=== PATIENT | female | born 1985 | race Caucasian/White ===

== ENCOUNTER 2016-12-08 08:32 | Inpatient (IN) | payer OTHER ==
[2016-12-08] MEDS: DEXTROSE 5%-LACTATED RINGERS 1,000 ML IV SCH ×2 (09:30→15:00)
[2016-12-08] MEDS ORDERED: TUBERCULIN PPD 5 TU/0.1ML SYRINGE (IN PATIENT USE ONLY) ID ONE (09:38)
[2016-12-08] MEDS: OXYTOCIN 15 UNITS/ LR 250 ML 250 ML IVPB SCH (10:30)
--- NOTE | 2016-12-08 10:35 | HP ---
Past Medical History - Primary Care Physician PCP:: Juan Manuel Ordonez - Admission Chief Complaint: 39 ,ROM, fibroid uterus History of Present Illness: 31 yo f edc by sono 12/13/16 , 39.2 weeks, c/o rom since 730 am today . mild cramps 8 am, no bleeding, no fever, cx 2 cm 80 vx -2 mr, nitrazine positive, gross ROM, clear fluid, fhr cat 1 , irregular mild contraction History Source: Patient Limitations to Obtaining History: No Limitations - Past Medical History ...: 2 ...Para: 0 ...Spon : 1 ...EDC by Sono: 12/13/16 Additional OB History: hx of fibroid uterus - Past Surgical History Hx Myomectomy: No Hx Transabdominal Cerclage: No - Alcohol/Substance Use Hx Alcohol Use: No History of Substance Use: reports: None - Social History Usual Living Arrangement: Yes: With Spouse History of Recent Travel: No Home Medications - Allergies Allergies/Adverse Reactions: Allergies Allergy/AdvReac Type Severity Reaction Status Date / Time Penicillins Allergy Severe Swelling Verified 12/08/16 09:51 - Home Medications Home Medications: Ambulatory Orders Vit Calc,Iron,Folic [ Vitamins] 1 each PO DAILY 12/08/16 Review of Systems - Review of Systems Constitutional: reports: No Symptoms Eyes: reports: No Symptoms HENT: reports: No Symptoms Neck: reports: No Symptoms Cardiovascular: reports: No Symptoms Respiratory: reports: No Symptoms Gastrointestinal: reports: No Symptoms Genitourinary: reports: No Symptoms Breasts: reports: No Symptoms Reported Musculoskeletal: reports: No Symptoms Integumentary: reports: No Symptoms Neurological: reports: No Symptoms Endocrine: reports: No Symptoms Hematology/Lymphatic: reports: No Symptoms Psychiatric: reports: No Symptoms Physical Exam - Maternity Vital Signs: Vital Signs Temperature 98.4 F 12/08/16 10:00 Pulse Rate 74 12/08/16 10:00 Respiratory Rate 18 12/08/16 10:00 Blood Pressure 124/62 12/08/16 10:00 O2 Sat by Pulse Oximetry (%) Constitutional: Yes: Well Nourished, No Distress, Calm Eyes: Yes: WNL, Conjunctiva Clear, EOM Intact HENT: Yes: WNL, Atraumatic, Normocephalic Neck: Yes: WNL, Supple, Trachea Midline Cardiovascular: Yes: WNL, Regular Rate and Rhythm Breast(s): Yes: WNL - Abdominal Exam/OB Number of Fetuses: Single Presentation: Vertex Contractions: Yes Regularity: Irregular Intensity: Mild/Mod Monitor Mode: External Heart Rate Location: [facility] Category: I Accelerations: Uniform Decelerations: None - Vaginal Exam/OB Vaginal Bleediing: No Speculum Exam: Yes Dilatation (cm): 2 cm Effacement (%): 80 Amniotic Membrane Status: Ruptured Nitrazine Test: Positive Amniotic Fluid: Yes: Clear Presentation: Vertex/Position Station: -2 - Physical Exam Musculoskeletal: Yes: WNL Extremities: Yes: WNL Edema: Yes Edema: LLE: 1+, RLE: 1+ Deep Tendon Reflex Grade: Normal +2 ...Motor Strength: WNL Psychiatric: Yes: WNL Hemorrhage Risk Assessment - Risk Factors Medium Risk Factors: Yes: Large myomas Risk Score: 1 Risk Level: Medium Risk Problem List - Problems (1) with 39 completed weeks gestation Code(s): Z3A.39 - 39 WEEKS GESTATION OF (2) membrane rupture Code(s): [id number] - (3) Fibroid uterus Code(s): D25.9 - LEIOMYOMA OF UTERUS, UNSPECIFIED Qualifiers: Uterine leiomyoma location: intramural Qualified Code(s): D25.1 - Intramural leiomyoma of uterus; D25.1 - Intramural leiomyoma of uterus Assessment/Plan admit, fhm, pitocin rba discussed , agreed
[2016-12-08] MEDS ORDERED: BUTORPHANOL TARTRATE 1 MG/ML VIAL IVPUSH ONE (10:43)
[2016-12-08] MEDS ORDERED: PROMETHAZINE HCL 25 MG/1 ML VIAL IVPUSH ONE (10:43)
[2016-12-08 10:47] LABS: BASOPHIL 0.2 % (0-2.0); EOSINOPHIL 0.5 % (0-4.5); MCH 30.7 pg (25.7-33.7); MCHC 33.3 g/dl (32.0-36.0); MEAN CELL VOLUME 92.4 fl (80-96); MEAN PLT VOLUME 8.3 fl (7.5-11.1); NEUTROPHILS 77.7 % (42.8-82.8); PLATELET COUNT 189 K/MM3 (134-434); RDW 14.1 % (11.6-15.6); WHITE BLOOD COUNT 7.5 K/mm3 (4.0-10.0)
[2016-12-08 11:09] LABS: INR 0.97 (0.82-1.09); PROTHROMBIN TIME (PATIENT) 10.7 SEC (9.98-11.88)
[2016-12-08 11:11] LABS: ACTIVATED PTT 25.8 SECONDS (26.9-34.4)
[2016-12-08 11:12] LABS: ANION GAP 13 (8-16); CALCIUM 8.8 mg/dL (8.5-10.1); CO2 19 mmol/L (21-32); CREATININE 0.6 mg/dL (0.55-1.02); GLUCOSE,RANDOM 128 mg/dL (74-106)
[2016-12-08 11:20] VITALS: BMI 35.9
[2016-12-08 11:32] LABS: HIV 1 & 2 AB NEGATIVE; HIV 1 AGp24 NEGATIVE
--- NOTE | 2016-12-08 19:00 | PN ---
Progress Note (short form) - Note Progress Note: cx 6 cm 100 vx -1 mr fhr cat 1. contraction regular Problem List - Problems (1) with 39 completed weeks gestation Code(s): Z3A.39 - 39 WEEKS GESTATION OF (2) membrane rupture Code(s): [id number] - (3) Fibroid uterus Code(s): D25.9 - LEIOMYOMA OF UTERUS, UNSPECIFIED Qualifiers: Uterine leiomyoma location: intramural Qualified Code(s): D25.1 - Intramural leiomyoma of uterus; D25.1 - Intramural leiomyoma of uterus
[2016-12-08] MEDS ORDERED: PROMETHAZINE HCL 25 MG/1 ML VIAL IVPB ONE (19:30)
[2016-12-08] MEDS ORDERED: BUTORPHANOL TARTRATE 1 MG/ML VIAL IVPB ONE (19:30)
[2016-12-08] MEDS ORDERED: CLINDAMYCIN 900 MG PREMIX IVPB 50 ML IVPB ONE (22:45)
[2016-12-08] MEDS ORDERED: ELECTROLYTE-148 SOLN 1,000 ML IV SCH (23:15)
[2016-12-09] MEDS ORDERED: FENTANYL/BUPIVACAINE/NS/PF - PCEA - 50 ML DISP.SYRIN EP SCH (00:45)
[2016-12-09] MEDS: CLINDAMYCIN 600MG PREMIX IVPB 50 ML IVPB SCH ×4 (02:50→22:20)
[2016-12-09] MEDS: OXYTOCIN 15 UNITS/ LR 250 ML 250 ML IVPB SCH (09:00)
--- NOTE | 2016-12-09 09:17 | PN ---
Progress Note (short form) - Note Progress Note: cx ant ,lip .100, vx 0 , fhr cat 1 .. contraction q 2 to 3 min Problem List - Problems (1) with 39 completed weeks gestation Code(s): Z3A.39 - 39 WEEKS GESTATION OF (2) membrane rupture Code(s): [id number] - (3) Fibroid uterus Code(s): D25.9 - LEIOMYOMA OF UTERUS, UNSPECIFIED Qualifiers: Uterine leiomyoma location: intramural Qualified Code(s): D25.1 - Intramural leiomyoma of uterus; D25.1 - Intramural leiomyoma of uterus
[2016-12-09] MEDS ORDERED: METHYLERGONOVINE MALEATE 0.2 MG/1 ML AMP IM PRN (14:44)
[2016-12-09] MEDS ORDERED: oxyCODONE HCL 5 MG TABLET PO PRN (14:44)
[2016-12-09] MEDS ORDERED: WITCH HAZEL 50% (TUCKS) 40 PAD/JAR PAD TP PRN (14:44)
[2016-12-09] MEDS ORDERED: BENZOCAINE 28 GM HEMORRHOIDAL OINTMENT PR PRN (14:44)
[2016-12-09] MEDS ORDERED: diphenhydrAMINE HCL 25 MG CAPSULE (FP) PO PRN (14:44)
[2016-12-09] MEDS ORDERED: BENZOCAINE 20% 57 GM BOTTLE TP PRN (14:44)
--- NOTE | 2016-12-09 14:44 | PN ---
Progress Note (short form) - Note Progress Note: cx fully for 3 hours o station, no descent, hx of fibroids, r/o obstruction advised c/s, rba discussed Problem List - Problems (1) with 39 completed weeks gestation Code(s): Z3A.39 - 39 WEEKS GESTATION OF (2) membrane rupture Code(s): [id number] - (3) Fibroid uterus Code(s): D25.9 - LEIOMYOMA OF UTERUS, UNSPECIFIED Qualifiers: Uterine leiomyoma location: intramural Qualified Code(s): D25.1 - Intramural leiomyoma of uterus; D25.1 - Intramural leiomyoma of uterus
[2016-12-09] MEDS ORDERED: DEXTROSE 5%-LACTATED RINGERS 1,000 ML IV SCH (14:45)
[2016-12-09] MEDS ORDERED: OXYTOCIN 20 UNITS in 0.9% NS 1,000 ML IV SCH (14:45)
[2016-12-09] MEDS ORDERED: ONDANSETRON 4 MG/2 ML VIAL IVPB PRN (15:36)
[2016-12-09] MEDS ORDERED: ACETAMINOPHEN 1000 MG/100 ML VIAL (NON FORMULARY) IVPB ONE (17:15)
[2016-12-09] MEDS ORDERED: CLINDAMYCIN 600MG PREMIX IVPB 50 ML IVPB SCH (18:00)
[2016-12-09] MEDS: IBUPROFEN 800 MG/8 ML IJ IVPB PRN (21:01)
[2016-12-10] MEDS: CLINDAMYCIN 600MG PREMIX IVPB 50 ML IVPB SCH (05:55)
[2016-12-10] MEDS: IBUPROFEN 800 MG/8 ML IJ IVPB PRN (05:56)
[2016-12-10 08:31] LABS: BASOPHIL 0.3 % (0-2.0); EOSINOPHIL 0.5 % (0-4.5); MCH 30.7 pg (25.7-33.7); MCHC 33.2 g/dl (32.0-36.0); MEAN CELL VOLUME 92.6 fl (80-96); MEAN PLT VOLUME 7.7 fl (7.5-11.1); NEUTROPHILS 78.8 % (42.8-82.8); PLATELET COUNT 178 K/MM3 (134-434); WHITE BLOOD COUNT 11.5 K/mm3 (4.0-10.0)
[2016-12-10] MEDS: ENOXAPARIN NA (PORCINE) 40 MG/0.4 ML DISP.SYRIN SQ SCH (09:46)
[2016-12-10] MEDS ORDERED: FLU VACC QS2017-18 36MOS UP/PF 60 MCG/0.5 ML SYRINGE IM ONE (10:00)
[2016-12-10] MEDS ORDERED: DIPHTH,PERTUSS(ACELL),TET 0.5 ML DISP.SYRIN IM ONE (10:00)
--- NOTE | 2016-12-10 13:58 | PN ---
Progress Note, Physician Chief Complaint: s/p c section under spinal anesthesia History of Present Illness: post op day one with duramorph for post op pain control - Current Medication List Current Medications: Active Medications Benzocaine (Americaine Ointment -) 1 applic MA PRN PRN PRN Reason: PAIN Benzocaine (Americaine 20% [place] -) 1 spray TP PRN PRN PRN Reason: PAIN Bisacodyl (Dulcolax Suppository -) 10 mg MA PRN PRN PRN Reason: CONSTIPATION Diphenhydramine HCl (Benadryl -) 25 mg PO Q8H PRN PRN Reason: FOR ITCHING Diphenhydramine HCl (Benadryl Injection -) 25 mg IVPUSH Q4H PRN PRN Reason: Pruritis Enoxaparin Sodium (Lovenox -) 40 mg SQ DAILY [facility] Last Admin: 12/10/16 09:46 Dose: 40 mg Dextrose/Lactated Ringer's (D5-Lr -) 1,000 mls @ 100 mls/hr IV ASDIR [facility] Last Admin: 12/08/16 15:00 Dose: 100 mls/hr Parenteral Electrolytes (Plasma-Lyte 148 -) 1,000 mls @ 125 mls/hr IV ASDIR [facility] Last Admin: 12/08/16 23:00 Dose: 125 mls/hr Dextrose/Lactated Ringer's (D5-Lr -) 1,000 mls @ 125 [facility]ls[facility] Ibuprofen (Motrin -) 600 mg PO Q4H PRN PRN Reason: PAIN Methylergonovine Maleate (Methergine Injection -) 0.2 mg IM Q4H PRN PRN Reason: EXCESSIVE BLEEDING Oxycodone HCl (Roxicodone -) 5 mg PO Q4H PRN PRN Reason: PAIN LEVEL 1-5 Oxycodone HCl (Roxicodone -) 10 mg PO Q4H PRN PRN Reason: PAIN LEVEL 6-10 Senna/Docusate Sodium (Pericolace -) 2 tablet PO HS PRN PRN Reason: CONSTIPATION Simethicone (Mylicon -) 80 mg PO Q4H PRN PRN Reason: GAS Witch Denita/Glycerin (Tucks Pads -) 1 pad TP PRN PRN PRN Reason: PAIN - Objective Vital Signs: Vital Signs Temperature 98.7 F 12/10/16 10:00 Pulse Rate 78 12/10/16 10:00 Respiratory Rate 18 12/10/16 12:00 Blood Pressure 102/63 12/10/16 10:00 O2 Sat by Pulse Oximetry (%) 100 12/09/16 10:05 Constitutional: Yes: Well Nourished Cardiovascular: Yes: WNL Respiratory: Yes: WNL Gastrointestinal: Yes: WNL Neurological: Yes: WNL Labs: CBC, BMP 12/10/16 07:35 12/08/16 09:50 INR, PTT INR 0.97 (0.82-1.09) 12/08/16 09:50 Assessment/Plan no anesthetic complaints, pain controlled, tolerating po, dept of anesthesiology will sign off care
[2016-12-10] MEDS ORDERED: BISACODYL 10 MG SUPP.RECT PR PRN (14:44)
[2016-12-10] MEDS: SIMETHICONE 80 MG TAB.CHEW (FP) PO PRN ×2 (15:37→21:55)
--- NOTE | 2016-12-10 18:20 | PN ---
Progress Note (short form) - Note Progress Note: pod 1 doing well, no c/o voids ok CBC, BMP 12/10/16 07:35 12/08/16 09:50 Last Vital Signs Temp Pulse Resp BP Pulse Ox 98.2 F 84 18 116/72 100 12/10/16 14:00 12/10/16 14:00 12/10/16 16:00 12/10/16 14:00 12/09/16 10:05 abdomen soft, no distension, no cva incision dry, clean no calf tenderness plan ambulate, advance diet, pain management Problem List - Problems (1) with 39 completed weeks gestation Code(s): Z3A.39 - 39 WEEKS GESTATION OF (2) membrane rupture Code(s): [id number] - (3) Fibroid uterus Code(s): D25.9 - LEIOMYOMA OF UTERUS, UNSPECIFIED Qualifiers: Uterine leiomyoma location: intramural Qualified Code(s): D25.1 - Intramural leiomyoma of uterus; D25.1 - Intramural leiomyoma of uterus
[2016-12-10] MEDS: oxyCODONE HCL 5 MG TABLET PO PRN (21:56)
[2016-12-10] MEDS: IBUPROFEN 600 MG TABLET (FP) PO PRN (21:56)
[2016-12-10] MEDS: ACETAMINOPHEN 325 MG TABLET (FP) PO PRN (21:57)
--- NOTE | 2016-12-11 06:20 | OP ---
DATE OF OPERATION: 12/09/2016 PREOPERATIVE DIAGNOSES: , term; prolonged ruptured membrane; failure to dilate. POSTOPERATIVE DIAGNOSES: , term; prolonged ruptured membrane; failure to dilate. PROCEDURE: Primary low segment transverse section. SURGEON: Juan Manuel Ordonez MD KNITTING MACHINE OPERATOR HELPER: Lilo Lane MD ESTIMATED BLOOD LOSS: 500 mL. FINDINGS: A live baby boy, 9, 9. OPERATION: Patient was taken to the operating room. Under adequate spinal anesthesia, abdomen and perineum were prepped and draped. Pfannenstiel abdominal skin incision was made. Abdominal wall was cut layer by layer until peritoneum was exposed and incised. Upon entering the abdominal cavity, lower uterine segment was identified and uterovesical fold of peritoneum established. Bladder was pushed down. A low transverse uterine incision was made. The incision extended laterally. Amniotic sac was entered. Clear fluid. Head delivered. Nasopharynx was suctioned and live baby was delivered without any difficulty. Placenta was delivered manually. Uterine cavity was cleaned of all remaining tissue. Uterine incision was closed in 2 layers, 1st layer with 0 Biosyn continuous suture, the 2nd layer with 0 Biosyn imbricating the 1st layer. Bladder flap was closed with 0 Biosyn continuous suture. Both tubes and ovaries were checked, were normal. There were several fibroids seen. Then, peritoneum was closed with 0 Biosyn continuous suture. Muscle layer brought together and sutured with 0 Biosyn. Fascia was closed with 0 Biosyn continuous suture, subcutaneous fat interrupted suture of 0 Biosyn, and the skin was closed with taylor. Patient tolerated procedure well, left the OR in good condition. Yolanda [id number]
--- NOTE | 2016-12-11 08:05 | PN ---
Progress Note (short form) - Note Progress Note: pod 2 doing well, ambulating , passing gas CBC, BMP 12/10/16 07:35 12/08/16 09:50 Last Vital Signs Temp Pulse Resp BP Pulse Ox 98.2 F 96 H 18 124/76 100 12/10/16 22:00 12/10/16 22:00 12/10/16 22:00 12/10/16 22:00 12/09/16 10:05 abdomen soft, no distension , no cva incision clean , dry no excess vaginal bleeding no calf tenderness plan ambulate, cbc in am, iron and vit Problem List - Problems (1) with 39 completed weeks gestation Code(s): Z3A.39 - 39 WEEKS GESTATION OF (2) membrane rupture Code(s): [id number] - (3) Fibroid uterus Code(s): D25.9 - LEIOMYOMA OF UTERUS, UNSPECIFIED Qualifiers: Uterine leiomyoma location: intramural Qualified Code(s): D25.1 - Intramural leiomyoma of uterus; D25.1 - Intramural leiomyoma of uterus
[2016-12-11] MEDS: ENOXAPARIN NA (PORCINE) 40 MG/0.4 ML DISP.SYRIN SQ SCH (10:24)
[2016-12-11] MEDS: IBUPROFEN 600 MG TABLET (FP) PO PRN (13:56)
[2016-12-11] MEDS: SIMETHICONE 80 MG TAB.CHEW (FP) PO PRN (13:56)
[2016-12-11] MEDS: oxyCODONE HCL 5 MG TABLET PO PRN (13:57)
[2016-12-11] MEDS: SENNOSIDES/DOCUSATE COMBO (SENNA PLUS) TABLET (UD) PO PRN (21:25)
--- NOTE | 2016-12-12 06:19 | PN ---
Post Progress Note Post Day: 3 Type of Delivery: Primary C/S Vital Signs: Vital Signs Temperature 97.6 F 12/11/16 21:29 Pulse Rate 88 12/11/16 21:29 Respiratory Rate 20 12/11/16 21:29 Blood Pressure 128/80 12/11/16 21:29 O2 Sat by Pulse Oximetry (%) 100 12/09/16 10:05 Breast Exam: Yes: Soft Uterus: Yes: Fundus Firm Incision: Yes: Jessica intact Abdomen/GI: Yes: Abdomen soft Lochia: Yes: Rubra Lochia, amount: Small Extremities: Yes: Calves non-tender Perineum: Yes: Intact Activity: Ambulating - Labs Labs: CBC WBC 11.5 K/mm3 (4.0-10.0) H D 12/10/16 07:35 RBC 2.95 M/mm3 (3.60-5.2) L D 12/10/16 07:35 Hgb 9.1 GM/dL (10.7-15.3) L D 12/10/16 07:35 Hct 27.3 % (32.4-45.2) L D 12/10/16 07:35 MCV 92.6 fl (80-96) 12/10/16 07:35 MCH 30.7 pg (25.7-33.7) 12/10/16 07:35 MCHC 33.2 g/dl (32.0-36.0) 12/10/16 07:35 RDW 14.0 % (11.6-15.6) 12/10/16 07:35 Plt Count 178 K/MM3 (134-434) 12/10/16 07:35 MPV 7.7 fl (7.5-11.1) 12/10/16 07:35 Neutrophils % 78.8 % (42.8-82.8) 12/10/16 07:35 Lymphocytes % 16.0 % (8-40) 12/10/16 07:35 Monocytes % 4.4 % (3.8-10.2) 12/10/16 07:35 Eosinophils % 0.5 % (0-4.5) 12/10/16 07:35 Basophils % 0.3 % (0-2.0) 12/10/16 07:35 Assessment/Plan stable no dizziness oob reg diet dc in am
[2016-12-12 07:29] LABS: BASOPHIL 0.3 % (0-2.0); EOSINOPHIL 0.7 % (0-4.5); MCH 30.6 pg (25.7-33.7); MCHC 33.2 g/dl (32.0-36.0); MEAN CELL VOLUME 92.1 fl (80-96); MEAN PLT VOLUME 7.9 fl (7.5-11.1); NEUTROPHILS 74.7 % (42.8-82.8); PLATELET COUNT 214 K/MM3 (134-434); RDW 14.1 % (11.6-15.6)
[2016-12-12] MEDS: IBUPROFEN 600 MG TABLET (FP) PO PRN ×2 (09:56→21:34)
[2016-12-12] MEDS: ENOXAPARIN NA (PORCINE) 40 MG/0.4 ML DISP.SYRIN SQ SCH (09:56)
[2016-12-12] MEDS: SIMETHICONE 80 MG TAB.CHEW (FP) PO PRN ×2 (09:56→21:33)
[2016-12-12] MEDS: ACETAMINOPHEN 325 MG TABLET (FP) PO PRN ×2 (09:57→21:33)
[2016-12-12] MEDS: SENNOSIDES/DOCUSATE COMBO (SENNA PLUS) TABLET (UD) PO PRN (21:33)
[2016-12-13] MEDS: IBUPROFEN 600 MG TABLET (FP) PO PRN (09:41)
[2016-12-13] MEDS: SIMETHICONE 80 MG TAB.CHEW (FP) PO PRN (09:42)
[2016-12-13] MEDS: ACETAMINOPHEN 325 MG TABLET (FP) PO PRN (09:42)
[2016-12-13] MEDS: ENOXAPARIN NA (PORCINE) 40 MG/0.4 ML DISP.SYRIN SQ SCH (09:43)
[2016-12-13 10:41] VITALS: BP 124/80; PULSE 88; TEMP 98.7
--- NOTE | 2016-12-15 08:46 | DS ---
Physical Exam-DRILL PRESSER Vital Signs: Vital Signs Temperature 98.7 F 12/13/16 10:00 Pulse Rate 88 12/13/16 10:00 Respiratory Rate 20 12/13/16 10:00 Blood Pressure 124/80 12/13/16 10:00 O2 Sat by Pulse Oximetry (%) 100 12/09/16 10:05 Constitutional: Yes: Well Nourished, No Distress, Calm Eyes: Yes: WNL, Conjunctiva Clear, EOM Intact HENT: Yes: WNL, Atraumatic, Normocephalic Neck: Yes: WNL, Supple, Trachea Midline Cardiovascular: Yes: WNL, Regular Rate and Rhythm Respiratory: Yes: WNL, Regular, CTA Bilaterally Gastrointestinal: Yes: WNL ...Rectal Exam: Yes: WNL Renal/: Yes: WNL ....Post : Yes: Uterus firm, Uterus non-tender, Slight lochia rubra Breast(s): Yes: WNL Musculoskeletal: Yes: WNL Extremities: Yes: WNL Integumentary: Yes: WNL Wound/Incision: Yes: Clean/Dry, Well Approximated, [place] Intact Neurological: Yes: WNL, Alert, Oriented ...Motor Strength: WNL Psychiatric: Yes: WNL, Alert, Oriented Labs: CBC, BMP 12/12/16 06:00 12/08/16 09:50 Delivery - Delivery Section: Repeat (no complication), Low Flap Transverse Type of Anesthesia: Spinal Episiotomy/Laceration: None EBL (cc): 600 Delivery, Single - Stages of Labor Date 1st Stage Initiatied: 12/08/16 Time 1st Stage Initiated: 22:00 Date 2nd Stage Initiated: 12/09/16 Time 2nd Stage Initiated: 10:10 Date of Delivery: 12/09/16 Time of Delivery: 14:59 Time Placenta Delivered: 15:01 Placenta: Yes: Expressed - Condition of Infant 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 - 1 Minute Total Score: 9 5 Minutes Total Score: 9 - Feeding Plan Initial Plan: Elected not to breastfeed exclusively throughout hospitalization Discharge Summary Reason For Visit: LABOR Procedures: Principal: repeat LST c/s Condition: Good - Instructions Referrals: Juan Manuel Ordonez MD [Staff Physician] - Disposition: HOME - Home Medications Comprehensive Discharge Medication List: Ambulatory Orders Ibuprofen [Motrin -] 600 mg PO TID #21 tablet 12/12/16
--- NOTE | 2016-12-16 17:02 | PATH ---
Surgical Pathology Report Patient Name: SAILAJA NATARAJAN Med. Rec. #: [id number] /Age/Gender: 1985 (Age: 31) / F Account: [id number] Location: [facility] OBS/GLUE WHEEL OPERATOR Taken: 12/08/2016 Received: 12/10/2016 Reported: 12/16/2016 Physicians: Juan Manuel Ordonez M.D. Specimen(s) Received PLACENTA Clinical History , 39.3 gestational weeks, PROM Failure to descend Final Diagnosis PLACENTA, SECTION: THIRD TRIMESTER PLACENTA (420 g) WITH ACUTE CHORIOAMNIONITIS AND FOCAL ACUTE UMBILICAL PHLEBITIS. TRIVASCULAR UMBILICAL CORD PRESENT. Electronically Signed Nilda Lopez M.D. Gross Description The specimen is received fresh labeled placenta and is a 420 gram, 13.0 x 12.5 x 3.2 cm. placenta with attached membranes and umbilical cord. The attached membranes are rodriguez, translucent with focal opacities and insert marginally. The umbilical cord measures 20 cm. in length and averages 1.2 cm. in diameter. The cord inserts at the margin. No true knots or strictures are identified. Cut surface of the umbilical cord reveals 3 vessels. The surface is hendrix-blue with minimal fibrin deposition and appropriate caliber vessels. The maternal surface is red-brown and intact. Sectioning reveals red-brown, spongy parenchyma. No lesions are identified. Leverman sections are submitted in three cassettes as follows: 1- membrane rolls and umbilical cord; 2-3- full thickness sections of placenta. 12/11/2016 [facility]12/11/2016
== END 2016-12-13 15:30 | disposition home or self-care (01) | DRG 540 ==
LOC: JDEL 08:32 → JLDR 09:00 → UNDOADMIN 09:00 → J3W 12-09 17:01
PROVIDERS: ADMIT Obstetrics & Gynecology; ATTEND Obstetrics & Gynecology
PROC: 10D00Z1 Extraction of Products of Conception, Low, Open Approach (ICD-10-PCS; principal; 2016-12-09)
DX: O62.0 Primary inadequate contractions (principal); O42.92 Full-term premature rupture of membranes, unspecified as to length of time between rupture and onset of labor; O34.13 Maternal care for benign tumor of corpus uteri, third trimester; D25.1 Intramural leiomyoma of uterus; Z3A.39 39 weeks gestation of pregnancy; O62.1 Secondary uterine inertia; Z37.0 Single live birth
CPT/HCPCS: 36415; 59025; 71020-TC; 80048; 80053; 81003; 81015; 85025; 85610; 85730; 86593; 86850; 86900; 86901; 87389; 88307-TC; 90686; 90715; 99282-25; G0008

== ENCOUNTER 2016-12-13 21:17 | Emergency (ER) | payer OTHER ==
[2016-12-13 21:41] VITALS: BP 130/72; PULSE 119; TEMP 99; BMI 34.5
--- NOTE | 2016-12-13 22:11 | PDOC ---
History of Present Illness - General Chief Complaint: Pain Stated Complaint: POST /ABD PAIN Time Seen by Provider: 12/13/16 22:09 History Source: Patient Exam Limitations: No Limitations - History of Present Illness Initial Comments: Patient is a 31 year old who was discharged today 5 days s/p presenting with fever and and sharp left lower abdominal pain. Patient gave by to a 39 week old boy five days ago and was discharged at 15: 00 today. About an hour after returning home patient started feeling sharp left lower abdominal pains and chills and recorded an oral temperature of 103. Pain was only minimally relieved with ibuprophin 600. Denies headache, dizziness , confusion, shortness of breath , chest pain, nausea, vomiting, constipation, diarrhea and dysurea. No PMH, no meds. PCP: none Penicillin allergy 12/13/16 22:11 Past History - Past Medical History Allergies/Adverse Reactions: Allergies Allergy/AdvReac Type Severity Reaction Status Date / Time Penicillins Allergy Severe Swelling Verified 12/13/16 21:41 Home Medications: Ambulatory Orders Ibuprofen [Motrin -] 600 mg PO TID #21 tablet 12/12/16 Asthma: No Cancer: No Cardiac Disorders: No Diabetes: No HTN: No Seizures: No Thyroid Disease: No - Suicide/Smoking/Psychosocial Hx Smoking History: Never smoked Have you smoked in the past 12 months: No Information on smoking cessation initiated: No Hx Alcohol Use: No Drug/Substance Use Hx: No Hx Substance Use Treatment: No *Physical Exam - Vital Signs Last Vital Signs Temp Pulse Resp BP Pulse Ox 99.0 F 119 H 18 130/72 99 12/13/16 21:36 12/13/16 21:36 12/13/16 21:36 12/13/16 21:36 12/13/16 21:36 ED Treatment Course - LABORATORY CBC & Chemistry Diagram: 12/13/16 22:40 12/13/16 22:40 Medical Decision Making - Medical Decision Making Recently discharged 31 year old 5 days s/p presenting with abdominal pain and fever. Temperature of 99 and tachycardia (119) at presentation. Clean/ dry incision sity w/o signs of infection or discharge. left sided tenderness just superior to incision site. ddx includes but is not limited to surgical incision infection, post surgical pain Pain control CBC/CMP UA monitor and reassess 12/13/16 22:47 CBC WBC 7.6 K/mm3 (4.0-10.0) 12/13/16 22:40 RBC 2.89 M/mm3 (3.60-5.2) L 12/13/16 22:40 Hgb 8.9 GM/dL (10.7-15.3) L D 12/13/16 22:40 Hct 26.3 % (32.4-45.2) L 12/13/16 22:40 MCV 91.1 fl (80-96) 12/13/16 22:40 MCH 30.9 pg (25.7-33.7) 12/13/16 22:40 MCHC 33.9 g/dl (32.0-36.0) 12/13/16 22:40 RDW 13.8 % (11.6-15.6) 12/13/16 22:40 Plt Count 195 K/MM3 (134-434) 12/13/16 22:40 MPV 6.9 fl (7.5-11.1) L D 12/13/16 22:40 Neutrophils % 86.9 % (42.8-82.8) H 12/13/16 22:40 Lymphocytes % 8.7 % (8-40) D 12/13/16 22:40 Monocytes % 3.7 % (3.8-10.2) L 12/13/16 22:40 Eosinophils % 0.5 % (0-4.5) 12/13/16 22:40 Basophils % 0.2 % (0-2.0) 12/13/16 22:40 Hgb dropped to 8.9 from 10.1 yesterday Not concerning for infection 12/13/16 23:13 12/13/16 23:41 CMP Sodium 138 mmol/L (136-145) 12/13/16 22:40 Potassium 3.5 mmol/L (3.5-5.1) 12/13/16 22:40 Chloride 105 mmol/L (98-107) 12/13/16 22:40 Carbon Dioxide 22 mmol/L (21-32) 12/13/16 22:40 Anion Gap 11 (8-16) 12/13/16 22:40 BUN 10 mg/dL (7-18) 12/13/16 22:40 Creatinine 0.6 mg/dL (0.55-1.02) 12/13/16 22:40 Creat Clearance w eGFR > 60 (>60) 12/13/16 22:40 Random Glucose 93 mg/dL (74-106) D 12/13/16 22:40 Calcium 7.8 mg/dL (8.5-10.1) L 12/13/16 22:40 Total Bilirubin 0.4 mg/dL (0.2-1.0) 12/13/16 22:40 AST 19 U/L (15-37) 12/13/16 22:40 ALT 44 U/L (12-78) 12/13/16 22:40 Alkaline Phosphatase 78 U/L (45-117) 12/13/16 22:40 Total Protein 6.2 g/dl (6.4-8.2) L 12/13/16 22:40 Albumin 2.4 g/dl (3.4-5.0) L 12/13/16 22:40 reviewed Urine Test Results Urine Color Ltyellow 12/13/16 23:15 Urine Appearance Clear 12/13/16 23:15 Urine pH 7.0 (5.0-8.0) 12/13/16 23:15 Urine Protein Negative (NEGATIVE) 12/13/16 23:15 Urine Glucose (UA) Negative (NEGATIVE) 12/13/16 23:15 Urine Ketones Negative (NEGATIVE) 12/13/16 23:15 Urine Blood 3+ (NEGATIVE) H 12/13/16 23:15 Urine Nitrite Negative (NEGATIVE) 12/13/16 23:15 Urine Bilirubin Negative (NEGATIVE) 12/13/16 23:15 Urine RBC 2 /hpf (0-3) 12/13/16 23:15 Urine WBC 22 /hpf (3-5) 12/13/16 23:15 Ur Epithelial Cells Rare /hpf (FEW) 12/13/16 23:15 Urine blood with 2 RBC consistent with recent surgery and non concerning Nitrite(-) *DC/Admit/Observation/Transfer Diagnosis at time of Disposition: Pain at surgical incision - Discharge Dispostion Disposition: HOME Condition at time of disposition: Improved Admit: No - Patient Instructions Printed Discharge Instructions: How to Care for a Surgical Wound Additional Instructions: Continue to take your prescribed ibuprofen for your pain You will probably be sore for a while Follow the instructions you were given on discharge It is important that you keep your appointment on Wednesday to have the incision inspected and to have the taylor removed Please return to the emergency department if your pain worsens and is not relieved by pain medication, you develop redness or swelling around the incision , you have pus or foul smelling discharge from the incision or you develop any new or worsening symptoms.
--- NOTE | 2016-12-13 22:26 | PDOC ---
Attending Attestation - Resident Resident Name: Daren Bailey - ED Attending Attestation I have performed the following: I have examined & evaluated the patient, The case was reviewed & discussed with the resident, I agree w/resident's findings & plan, Exceptions are as noted - HPI HPI: 12/13/16 22:32 31 yo female just discharged today after having a c section performed several days ago for a full term -pt returned because of pain not controlled by the motrin she took -she said she took her temperature at home and she said it was elevated - Physicial Exam PE: 12/13/16 22:34 wnwd 31 yo female p/w pain s/p c section,just discharged today HEENT wnl lungs cta b/l cvs [id number] abd c section intact,no wound dehiscence,no discharge,no erythema, no rebound neuro axox3,ambulatory - Medical Decision Making 12/13/16 23:40 plan to keep her appt with pelletizer operator on Wednesday
[2016-12-13] MEDS ORDERED: IBUPROFEN 600 MG TABLET (FP) PO ONE ×2 (22:32→22:42)
[2016-12-13 22:49] LABS: BASOPHIL 0.2 % (0-2.0); EOSINOPHIL 0.5 % (0-4.5); MCH 30.9 pg (25.7-33.7); MCHC 33.9 g/dl (32.0-36.0); MEAN CELL VOLUME 91.1 fl (80-96); MEAN PLT VOLUME 6.9 fl (7.5-11.1); NEUTROPHILS 86.9 % (42.8-82.8); PLATELET COUNT 195 K/MM3 (134-434); RDW 13.8 % (11.6-15.6); WHITE BLOOD COUNT 7.6 K/mm3 (4.0-10.0)
[2016-12-13 23:15] LABS: ALBUMIN 2.4 g/dl (3.4-5.0); ANION GAP 11 (8-16); CALCIUM 7.8 mg/dL (8.5-10.1); CO2 22 mmol/L (21-32); CREATININE 0.6 mg/dL (0.55-1.02); GLUCOSE,RANDOM 93 mg/dL (74-106); SGOT/AST 19 U/L (15-37); SGPT/ALT 44 U/L (12-78)
[2016-12-13 23:17] LABS: ALK PHOS 78 U/L (45-117); BILIRUBIN,TOTAL 0.4 mg/dL (0.2-1.0); TOT PROT 6.2 g/dl (6.4-8.2)
[2016-12-13 23:24] LABS: URINE APPEARANCE CLEAR; URINE BILIRUBIN NEGATIVE (NEGATIVE); URINE BLOOD 3+ (NEGATIVE); URINE COLOR LTYELLOW; URINE GLUCOSE (UA) NEGATIVE (NEGATIVE); URINE KETONE NEGATIVE (NEGATIVE); URINE NITRITE NEGATIVE (NEGATIVE); URINE PROTEIN NEGATIVE (NEGATIVE); URINE UROBILINOGEN NEGATIVE mg/dL (0.2-1.0)
[2016-12-13 23:27] LABS: URINE RBC 2 /hpf (0-3); URINE WBC 22 /hpf (3-5)
[2016-12-14 14:38] LABS: URINE LEUK ESTERASE 2+ (NEGATIVE)
== END 2016-12-14 00:16 | disposition home or self-care (01) ==
LOC: JER 21:17
DX: O90.89 Other complications of the puerperium, not elsewhere classified (principal); O86.4 Pyrexia of unknown origin following delivery; G89.18 Other acute postprocedural pain
CPT/HCPCS: 36415; 80053; 81003; 81015; 85025; 99282-25